=== PATIENT | female | born 1955 | race Caucasian/White ===

== ENCOUNTER 2018-03-30 21:36 | Inpatient (IN) | payer BC ==
[2018-03-30 21:58] LABS: ADD MAN DIFF? NO
[2018-03-30 22:05] LABS: WHITE BLOOD COUNT 9.6 10^3/ul (4.8-10.8)
[2018-03-30 22:05] LABS: BASOPHILS % 0.4 % (0.0-2.0); EOSINOPHILS # 0.1 10^3/ul (0.0-0.5); EOSINOPHILS % 1.1 % (0.0-7.0); HEMATOCRIT 44.3 % (37.0-47.0); HEMOGLOBIN 15.1 g/dl (12.0-16.0); LYMPHOCYTES # 3.9 10^3/ul (0.8-2.9); LYMPHOCYTES % 40.7 % (15.0-51.0); MEAN CORPUSCULAR HGB CONC 34.1 g/dl (32.0-37.0); MEAN CORPUSCULAR VOLUME 88.1 fl (82.0-101.0); MEAN PLATELET VOLUME 8.9 fl (7.4-10.4); MONOCYTE # 0.8 10^3/ul (0.3-0.9); MONOCYTES % 8.3 % (0.0-11.0); NEUTROPHIL # 4.7 10^3/ul (1.6-7.5); NEUTROPHILS % 49.2 % (39.0-77.0); PLATELET COUNT 334 10^3/UL (140-415); RED BLOOD COUNT 5.03 10^6/ul (4.20-5.40); RED CELL DISTRIBUTION WIDTH 12.2 % (11.5-14.5)
[2018-03-30] MEDS: LABETALOL HCL 20MG INJ IV (22:10)
[2018-03-30 22:16] LABS: HEMOGLOBIN A1C 10.1 % (0-5.9)
[2018-03-30 22:24] LABS: ALANINE AMINOTRANSFERASE 46 IU/L (13-69); ALKALINE PHOSPHATASE 261 IU/L (42-121); ANION GAP 15 (8-16); ASPARTATE AMINO TRANSFERASE 47 IU/L (15-46); BILIRUBIN,INDIRECT 0.3 mg/dl (0-1.1); BILIRUBIN,TOTAL 0.3 mg/dl (0.2-1.3); BLOOD UREA NITROGEN 13 mg/dl (7-20); CARBON DIOXIDE 31 mmol/L (21-31); CHLORIDE 98 mmol/L (97-110); CHOL/HDL RATIO 4.7 RATIO; CHOLESTEROL 249 mg/dl (100-200); CREATININE 0.55 mg/dl (0.44-1.00); GLUCOSE 245 mg/dl (70-220); HDL CHOLESTEROL 52 mg/dl (35-98); INR 1.02; LDL CHOLESTEROL,CALCULATED 122 mg/dl; POTASSIUM 3.8 mmol/L (3.5-5.1); PROTIME 13.5 Sec (11.9-14.9); PT RATIO 1.1; SODIUM 140 mmol/L (135-144); TOTAL PROTEIN 8.4 g/dl (6.1-8.1); TRIGLYCERIDES 373 mg/dl (0-149)
[2018-03-30 22:25] LABS: PARTIAL THROMBOPLASTIN TIME 30.2 Sec (23.0-35.0)
[2018-03-30 22:37] LABS: TROPONIN-I < 0.012 ng/ml (0.000-0.120)
[2018-03-31] MEDS ORDERED: ONDANSETRON 4 MG INJ IV (02:00)
[2018-03-31] MEDS ORDERED: DOCUSATE SODIUM 100 MG CAP PO (02:00)
[2018-03-31] MEDS ORDERED: NACL 0.9% 3 ML SYG IV (02:00)
[2018-03-31] MEDS ORDERED: BISACODYL (EC) 5 MG TAB PO (02:00)
[2018-03-31] MEDS ORDERED: GLUCOSE GEL 15 GRAM TUBE PO ×2 (02:30)
[2018-03-31] MEDS ORDERED: DEXTROSE 50% 50 ML SYRINGE IV ×2 (02:30)
[2018-03-31] MEDS ORDERED: GLUCOSE GEL 15 GRAM TUBE BUCCAL (02:30)
[2018-03-31] MEDS ORDERED: hydrALAzine 20 MG INJ IV (02:30)
[2018-03-31] MEDS ORDERED: GLUCAGON 1 MG INJ IM (02:30)
[2018-03-31] MEDS: ACCU-CHEK XX (02:45)
[2018-03-31] MEDS: INSULIN GLARGINE [LANTus] (100 UNITS/ML) SYG SC ×2 (03:28→12:50)
[2018-03-31 03:49] LABS: ADD MAN DIFF? NO; HAAIG REFLEX REFLEX FILED
[2018-03-31 03:58] LABS: BASOPHILS % 0.4 % (0.0-2.0); EOSINOPHILS % 0.5 % (0.0-7.0); HEMATOCRIT 39.7 % (37.0-47.0); HEMOGLOBIN 13.6 g/dl (12.0-16.0); LYMPHOCYTES # 1.8 10^3/ul (0.8-2.9); LYMPHOCYTES % 24.3 % (15.0-51.0); MEAN CORPUSCULAR HEMOGLOBIN 30.1 pg (29.0-33.0); MEAN CORPUSCULAR HGB CONC 34.3 g/dl (32.0-37.0); MEAN CORPUSCULAR VOLUME 87.8 fl (82.0-101.0); MEAN PLATELET VOLUME 9.1 fl (7.4-10.4); MONOCYTE # 0.6 10^3/ul (0.3-0.9); MONOCYTES % 7.4 % (0.0-11.0); PLATELET COUNT 277 10^3/UL (140-415); RED BLOOD COUNT 4.52 10^6/ul (4.20-5.40); RED CELL DISTRIBUTION WIDTH 12.4 % (11.5-14.5)
[2018-03-31 03:58] LABS: WHITE BLOOD COUNT 7.5 10^3/ul (4.8-10.8)
[2018-03-31 04:15] LABS: CREATINE KINASE 61 IU/L (23-200)
[2018-03-31 04:18] LABS: ALANINE AMINOTRANSFERASE 37 IU/L (13-69); ALBUMIN/GLOBULIN RATIO 1.14; ALKALINE PHOSPHATASE 196 IU/L (42-121); ANION GAP 11 (8-16); ASPARTATE AMINO TRANSFERASE 35 IU/L (15-46); BILIRUBIN,INDIRECT 0.2 mg/dl (0-1.1); BILIRUBIN,TOTAL 0.2 mg/dl (0.2-1.3); BLOOD UREA NITROGEN 11 mg/dl (7-20); CALCIUM 9.3 mg/dl (8.4-10.2); CARBON DIOXIDE 30 mmol/L (21-31); CHLORIDE 105 mmol/L (97-110); CHOL/HDL RATIO 4.4 RATIO; CHOLESTEROL 224 mg/dl (100-200); CREATININE 0.42 mg/dl (0.44-1.00); GLUCOSE 252 mg/dl (70-220); HDL CHOLESTEROL 50 mg/dl (35-98); LDL CHOLESTEROL,CALCULATED 140 mg/dl; MAGNESIUM 1.8 mg/dl (1.7-2.5); POTASSIUM 4.1 mmol/L (3.5-5.1); SODIUM 142 mmol/L (135-144); TOTAL PROTEIN 7.5 g/dl (6.1-8.1); TRIGLYCERIDES 171 mg/dl (0-149)
[2018-03-31 04:27] LABS: CK INDEX 1.5; TROPONIN-I < 0.012 ng/ml (0.000-0.120)
[2018-03-31 04:47] LABS: HEPATITIS B SURFACE ANTIGEN NEGATIVE (NEGATIVE)
[2018-03-31 05:04] LABS: HEPATITIS B CORE ANTIBODY NEGATIVE (NEGATIVE); HEPATITIS C VIRAL ANTIBODY NEGATIVE (NEGATIVE)
[2018-03-31 05:05] LABS: HEPATITIS B SURFACE ANTIBODY NEGATIVE (NEGATIVE)
[2018-03-31] MEDS: ASPIRIN 81 MG TAB PO (08:24)
[2018-03-31] MEDS: INSULIN ASPART [NOVOLOG] 3 ML PEN SC ×6 (08:27→21:00)
[2018-03-31] MEDS: INFLUENZA VIRUS VACCINE 0.5 ML (DISPENSING) IM* (10:00)
[2018-03-31 10:02] LABS: ADD UMIC YES; UR AMORPHOUS CRYSTAL FEW /HPF (NONE SEEN); UR ASCORBIC ACID NEGATIVE (NEGATIVE); UR BACTERIA FEW /HPF (NONE SEEN); UR BILIRUBIN (Dip) NEGATIVE (NEGATIVE); UR BLOOD (Dip) NEGATIVE (NEGATIVE); UR CLARITY SLIGHTLY CLOUDY (CLEAR); UR COLOR YELLOW (YELLOW); UR GLUCOSE (Dip) 3+ mg/dL (NEGATIVE); UR KETONES (Dip) TRACE mg/dL (NEGATIVE); UR LEUKOCYTE ESTERASE (Dip) NEGATIVE Leu/ul (NEGATIVE); UR MUCUS FEW /HPF (NONE SEEN); UR NITRITE (Dip) POSITIVE (NEGATIVE); UR RBC 0 /HPF (0-5); UR SPECIFIC GRAVITY (Dip) 1.012 (1.003-1.030); UR TOTAL PROTEIN (Dip) NEGATIVE (NEGATIVE); UR UROBILINOGEN (Dip) NEGATIVE (NEGATIVE); UR WBC 4 /HPF (0-5)
[2018-03-31 10:19] LABS: AMPHETAMINE/METHAMPHETAMINE Negative (NEGATIVE); BARBITURATES Negative (NEGATIVE); BENZODIAZEPINES Negative (NEGATIVE); CANNABINOIDS Negative (NEGATIVE); COCAINE Negative (NEGATIVE); OPIATES Negative (NEGATIVE)
[2018-03-31 11:22] LABS: CREATINE KINASE 51 IU/L (23-200)
[2018-03-31 11:35] LABS: CK INDEX 1.2; CK-MB 0.59 ng/ml (0.0-2.4); TROPONIN-I < 0.012 ng/ml (0.000-0.120)
[2018-03-31] MEDS: LORAZEPAM 2 MG INJ IV (15:58)
[2018-03-31 16:30] LABS: RAPID PLASMA REAGIN NONREACTIVE (NR)
[2018-03-31] MEDS: ACETAMINOPHEN 325 MG TAB PO (18:15)
[2018-03-31] MEDS: LISINOPRIL 20 MG TAB PO (20:31)
[2018-03-31] MEDS: ATORVASTATIN 40 MG TAB PO (20:31)
[2018-04-01] MEDS: ACCU-CHEK XX (02:00)
[2018-04-01 06:00] LABS: ADD MAN DIFF? NO
[2018-04-01 06:03] LABS: BASOPHILS % 0.6 % (0.0-2.0); EOSINOPHILS # 0.1 10^3/ul (0.0-0.5); EOSINOPHILS % 1.9 % (0.0-7.0); HEMATOCRIT 41.3 % (37.0-47.0); HEMOGLOBIN 13.9 g/dl (12.0-16.0); LYMPHOCYTES # 2.3 10^3/ul (0.8-2.9); LYMPHOCYTES % 35.6 % (15.0-51.0); MEAN CORPUSCULAR HEMOGLOBIN 29.6 pg (29.0-33.0); MEAN CORPUSCULAR HGB CONC 33.7 g/dl (32.0-37.0); MEAN CORPUSCULAR VOLUME 87.9 fl (82.0-101.0); MEAN PLATELET VOLUME 8.7 fl (7.4-10.4); MONOCYTE # 0.7 10^3/ul (0.3-0.9); MONOCYTES % 10.6 % (0.0-11.0); NEUTROPHIL # 3.3 10^3/ul (1.6-7.5); PLATELET COUNT 271 10^3/UL (140-415); RED CELL DISTRIBUTION WIDTH 12.4 % (11.5-14.5)
[2018-04-01 06:03] LABS: WHITE BLOOD COUNT 6.4 10^3/ul (4.8-10.8)
[2018-04-01 06:23] LABS: ANION GAP 8 (8-16); BLOOD UREA NITROGEN 14 mg/dl (7-20); CALCIUM 9.4 mg/dl (8.4-10.2); CARBON DIOXIDE 29 mmol/L (21-31); CHLORIDE 106 mmol/L (97-110); CREATININE 0.46 mg/dl (0.44-1.00); GLUCOSE 165 mg/dl (70-220); POTASSIUM 4.1 mmol/L (3.5-5.1); SODIUM 139 mmol/L (135-144)
[2018-04-01] MEDS: PANTOPRAZOLE (EC) 40 MG TAB PO (06:45)
[2018-04-01] MEDS: ASPIRIN 81 MG TAB PO (08:13)
[2018-04-01] MEDS: VALACYCLOVIR 500 MG TAB PO (08:14)
[2018-04-01] MEDS: predniSONE 20 MG TAB PO (08:14)
[2018-04-01] MEDS: INSULIN ASPART [NOVOLOG] 3 ML PEN SC ×4 (08:30→11:52)
[2018-04-01] MEDS: INSULIN GLARGINE [LANTus] (100 UNITS/ML) SYG SC (08:30)
[2018-04-01 16:07] LABS: CREATININE, RANDOM URINE 55 mg/dL (20-275); MICROALBUMIN 0.3 mg/dL; MICROALBUMIN/CREATININE RATIO 5 (<30)
== END 2018-04-01 15:10 | disposition home or self-care (01) | DRG 74 ==
LOC: E/R 21:36 → TEL 03-31 01:24
DX: G51.0 Bell's palsy (principal); I10 Essential (primary) hypertension; E11.65 Type 2 diabetes mellitus with hyperglycemia; E78.5 Hyperlipidemia, unspecified
CPT/HCPCS: 36415; 70450; 70544; 70549; 70551; 71045; 76705; 80048; 80053; 80061; 80307; 81001; 82043; 82550; 82553; 82962; 83036; 83735; 84443; 84484; 85025; 85610; 85730; 86592; 86704; 86706; 86708; 86709; 86803; 87340; 90686; 92610; 93005; 93306; 96374; 97161; 97166; 99285-25